=== PATIENT | female | born 1960 | race Caucasian/White ===

== ENCOUNTER 2021-01-26 07:25 | Emergency (ER) | payer OTHER ==
[~2021-01-26] VITALS: Ht 154.9 cm; Wt 68.0 kg
[~2021-01-26 07:25] MED LIST: ATACAND4 MG
[2021-01-26] MEDS ORDERED: LOSARTAN-HCTZ1 EACH (07:53)
[2021-01-26] MEDS ORDERED: UNITHROID50 MCG (07:54)
[2021-01-26] MEDS ORDERED: PRILOSEC OTC20 MG (07:55)
[2021-01-26] MEDS ORDERED: CYTOMEL5 MCG (07:56)
== END 2021-01-26 13:13 | disposition home or self-care (01) ==
LOC: ER 07:25
DX: E05.80 Other thyrotoxicosis without thyrotoxic crisis or storm (principal); F06.4 Anxiety disorder due to known physiological condition; Z11.52 Encounter for screening for COVID-19

== ENCOUNTER 2021-06-30 09:38 | Emergency (ER) | payer OTHER ==
[~2021-06-30] VITALS: Ht 63.5 cm; Wt 66.7 kg
[~2021-06-30 09:38] MED LIST changes: +CYTOMEL5 MCG; +LOSARTAN-HCTZ1 EACH; +PRILOSEC OTC20 MG; +UNITHROID50 MCG
== END 2021-06-30 11:46 | disposition home or self-care (01) ==
LOC: ER 09:38
DX: R25.1 Tremor, unspecified (principal); R51.9 Headache, unspecified; F41.8 Other specified anxiety disorders; E03.9 Hypothyroidism, unspecified; I10 Essential (primary) hypertension

== ENCOUNTER 2021-07-01 12:07 | Outpatient (CLI) | payer OTHER | END 2021-07-01 12:18 | disposition home or self-care (01) | LOC: MRI 12:07 | PROVIDERS: ATTEND Internal Medicine | DX: D49.6 Neoplasm of unspecified behavior of brain (principal); G40.909 Epilepsy, unspecified, not intractable, without status epilepticus | CPT/HCPCS: 70553 ==

== ENCOUNTER 2021-11-30 08:00 | Outpatient (CLI) | payer OTHER | END 2021-11-30 08:30 | disposition home or self-care (01) | LOC: PPH VACUNA 08:00 | PROVIDERS: ATTEND Emergency Medicine Pediatric Emergency Medicine | DX: Z23 Encounter for immunization (principal) ==

== ENCOUNTER 2021-11-30 13:23 | Outpatient (CLI) | payer OTHER | END 2021-11-30 13:46 | disposition home or self-care (01) | LOC: RAD 13:23 | PROVIDERS: ATTEND Internal Medicine | DX: M54.6 Pain in thoracic spine (principal); M54.50 Low back pain, unspecified; M54.2 Cervicalgia | CPT/HCPCS: 72146; 72148 ==

== ENCOUNTER 2022-06-08 12:31 | Outpatient (CLI) | payer OTHER | END 2022-06-08 12:40 | disposition home or self-care (01) | LOC: SONOGRAMA 12:31 | PROVIDERS: ATTEND Internal Medicine | DX: N28.1 Cyst of kidney, acquired (principal) ==

== ENCOUNTER 2024-10-09 09:38 | Outpatient (CLI) | payer OTHER ==
[2024-10-09 11:19] LABS: CREATININE SERUM 0.74 mg/dL (0.55-1.02)
== END 2024-10-09 09:44 | disposition home or self-care (01) ==
LOC: LAB 09:38
PROVIDERS: ATTEND Obstetrics & Gynecology
DX: R10.2 Pelvic and perineal pain (principal); Z01.818 Encounter for other preprocedural examination; Z01.812 Encounter for preprocedural laboratory examination

== ENCOUNTER → 2024-10-10 | Outpatient (CLI) | payer OTHER | END | disposition home or self-care (01) | LOC: MRI 06:46 | PROVIDERS: ATTEND Obstetrics & Gynecology | DX: R10.2 Pelvic and perineal pain (principal) | CPT/HCPCS: 72197 ==

== ENCOUNTER 2024-10-17 08:59 | Outpatient (CLI) | payer OTHER | END 2024-10-17 09:02 | disposition home or self-care (01) | LOC: MRI 08:59 | PROVIDERS: ATTEND Internal Medicine Gastroenterology | DX: K57.30 Diverticulosis of large intestine without perforation or abscess without bleeding (principal); R14.3 Flatulence; K30 Functional dyspepsia; K21.00 Gastro-esophageal reflux disease with esophagitis, without bleeding; R10.30 Lower abdominal pain, unspecified | CPT/HCPCS: 74183 ==

== ENCOUNTER → 2024-10-21 11:05 | Outpatient (CLI) | payer OTHER | END | disposition home or self-care (01) | LOC: NUCLEAR 10:00 | PROVIDERS: ATTEND Obstetrics & Gynecology | DX: M81.0 Age-related osteoporosis without current pathological fracture (principal); M85.80 Other specified disorders of bone density and structure, unspecified site; Z13.820 Encounter for screening for osteoporosis ==